=== PATIENT | male | born 1980 | race Caucasian/White ===

== ENCOUNTER 2019-05-15 06:24 | Emergency (ER) | payer BC ==
[2019-05-15] MEDS ORDERED: Sodium Chloride 0.9% 2.5 ML Syringe FLUSH PRN (06:45)
[2019-05-15] MEDS ORDERED: Sodium Chloride 0.9% 1,000 ML IV ONE (06:45)
[2019-05-15] MEDS ORDERED: Ondansetron 4 MG/2 ML SDV IVPUSH ONE (06:45)
[2019-05-15] MEDS ORDERED: Sodium Chloride 0.9% 10 ML Syringe FLUSH PRN (06:45)
[2019-05-15] MEDS ORDERED: LORazepam 2 MG/ML SDV IVPUSH ONE (07:06)
--- NOTE | 2019-05-15 07:06 | EDM.PDOC ---
ED HPI GENERAL MEDICAL PROBLEM - General Chief Complaint: General Stated Complaint: DT Time Seen by Provider: 05/15/19 07:01 Source of Information: Reports: Patient History Limitations: Reports: No Limitations - History of Present Illness INITIAL COMMENTS - FREE TEXT/NARRATIVE: History of present illness: []Patient admits to being an alcoholic and states he now wants to quit. He was around 6 PM last night and states he vomited several times throughout the night. Came to the ER for dehydration and after he arrived here, he stated he started feeling shaky. He denies any blood in his emesis or stool denies any abdominal pain. He denies ever having any seizures in the past. Quit alcohol and has gone through withdrawal in the past. Review of systems: As per history of present illness and below otherwise all systems reviewed and negative. Past medical history: As per history of present illness and as reviewed below otherwise noncontributory. Surgical history: As per history of present illness and as reviewed below otherwise noncontributory. Social history: No reported history of drug or alcohol abuse. Family history: As per history of present illness and as reviewed below otherwise noncontributory. Physical exam: General: Well developed, well nourished in NAD HEENT: Atraumatic, normocephalic, pupils reactive, negative for conjunctival pallor or scleral icterus, mucous membranes moist, throat clear, neck supple, nontender, trachea midline. Lungs: Clear to auscultation, breath sounds equal bilaterally, chest nontender. Heart: S1S2, regular, negative for clicks, rubs, or JVD. Abdomen: NABS, Soft, nondistended, nontender. Negative for masses or hepatosplenomegaly. Negative for costovertebral tenderness. Pelvis: Stable nontender. Genitourinary: Deferred. Rectal: Deferred. Extremities: Atraumatic, negative for cords or calf pain. Neurovascular unremarkable. Neuro: Awake, alert, oriented. Cranial nerves II through XII unremarkable. Cerebellum unremarkable. Motor and sensory unremarkable throughout. Exam nonfocal. No tremors noted Skin:warm and dry Diagnostics: CBC, chemistry, lactate, lipase Therapeutics: IV hydration with normal saline, banana bag, Zofran, Ativan ED Course: Improved Impression: Alcohol withdrawal Prescriptions: Librium Plan: Take meds as directed, follow up with your primary care physician, return to ER if symptoms worsen or change. Definitive disposition and diagnosis as appropriate pending reevaluation and review of above. 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 Psychiatric History: Reports: Anxiety, Depression - Infectious Disease History Infectious Disease History: Reports: C-Difficile - Past Surgical History Male Surgical History: Reports: None Social & Family History - Family History Family Medical History: Noncontributory - Tobacco Use Smoking Status *Q: Current Every Day Smoker Years of Tobacco use: 20 Packs/Tins Daily: 1.5 - Caffeine Use Caffeine Use: Reports: Coffee, Energy Drinks, Soda - Alcohol Use Days Per Week of Alcohol Use: 7 Number of Drinks Per Day: 6 Total Drinks Per Week: 42 - Recreational Drug Use Recreational Drug Use: Yes Recreational Drug Type: Reports: Marijuana/Hashish Recreational Drug Use Frequency: Socially Recreational Drug Last Use: "this morning" ED ROS GENERAL - Review of Systems Review Of Systems: See Below ED EXAM, GENERAL - Physical Exam Exam: See Below (See history of present illness) Course - Vital Signs Last Recorded V/S: Last Vital Signs Temp 97.2 F 05/15/19 06:30 Pulse 100 05/15/19 08:38 Resp 18 05/15/19 08:38 BP 128/72 05/15/19 08:38 Pulse Ox 97 05/15/19 08:38 - Orders/Labs/Meds Orders: Active Orders 24 hr Category Date Time Status Saline Lock Insert [OM.PC] Stat Oth 05/15/19 06:44 Ordered Labs: Laboratory Tests 05/15/19 05/15/19 05/15/19 Range/Units 06:45 06:50 06:50 WBC 12.03 H (4.0-11.0) K/uL RBC 5.97 H (4.50-5.90) M/uL Hgb 18.9 H (13.0-17.0) g/dL Hct 53.1 H (38.0-50.0) % MCV 88.9 (80.0-98.0) fL MCH 31.7 (27.0-32.0) pg MCHC 35.6 (31.0-37.0) g/dL RDW Std Deviation 48.7 (28.0-62.0) fl RDW Coeff of Shantel 15 (11.0-15.0) % Plt Count 195 (150-400) K/uL MPV 9.80 (7.40-12.00) fL Neut % (Auto) 65.9 (48.0-80.0) % Lymph % (Auto) 24.5 (16.0-40.0) % [place] % (Auto) 7.4 (0.0-15.0) % Eos % (Auto) 1.9 (0.0-7.0) % Baso % (Auto) 0.3 (0.0-1.5) % Neut # (Auto) 7.9 H (1.4-5.7) K/uL Lymph # (Auto) 3.0 H (0.6-2.4) K/uL [place] # (Auto) 0.9 H (0.0-0.8) K/uL Eos # (Auto) 0.2 (0.0-0.7) K/uL Baso # (Auto) 0.0 (0.0-0.1) K/uL Nucleated RBC % 0.0 /100WBC Nucleated RBCs # 0 K/uL Sodium 144 (136-148) mmol/L Potassium 3.9 (3.5-5.1) mmol/L Chloride 105 (98-107) mmol/L Carbon Dioxide 25.5 (21.0-32.0) mmol/L BUN 14 (7.0-18.0) mg/dL Creatinine 1.1 (0.8-1.3) mg/dL Est Cr Clr Drug Dosing 104.04 mL/min Estimated GFR (MDRD) > 60.0 ml/min Glucose 101 (74-106) mg/dL Calcium 9.4 (8.5-10.1) mg/dL Total Bilirubin 0.5 (0.2-1.0) mg/dL AST 25 (15-37) IU/L ALT 20 (14-63) IU/L Alkaline Phosphatase 79 (46-116) U/L Total Protein 8.1 (6.4-8.2) g/dL Albumin 4.1 (3.4-5.0) g/dL Globulin 4.0 (2.6-4.0) g/dL Albumin/Globulin Ratio 1.0 (0.9-1.6) Lipase 155 (73-393) U/L Urine Color YELLOW Urine Appearance CLEAR Urine pH 6.0 (5.0-8.0) Ur Specific [place] 1.025 (1.001-1.035) Urine Protein 30 H (NEGATIVE) mg/dL Urine Glucose (UA) NEGATIVE (NEGATIVE) mg/dL Urine Ketones NEGATIVE (NEGATIVE) mg/dL Urine Occult Blood NEGATIVE (NEGATIVE) Urine Nitrite NEGATIVE (NEGATIVE) Urine Bilirubin NEGATIVE (NEGATIVE) Urine Urobilinogen 0.2 (<2.0) EU/dL Ur Leukocyte Esterase NEGATIVE (NEGATIVE) Urine RBC 0-2 (0-2/HPF) Urine WBC 0-1 (0-5/HPF) Ur Epithelial Cells RARE (NONE-FEW) Urine Bacteria RARE (NEGATIVE) Urine Mucus MODERATE (NONE-MOD) Meds: Medications Discontinued Medications Generic Name Dose Route Start Last Admin Trade Name Freq PRN Reason Stop Dose Admin Sodium Chloride 1,000 mls @ 999 mls/hr 05/15/19 06:45 05/15/19 06:50 Normal Saline IV 05/15/19 07:45 999 mls/hr STAT ONE Administration Multivitamins/Minerals 10 ml/ 1,011.2 mls @ 999 mls/hr 05/15/19 07:17 07:33 Thiamine HCl 100 mg/ Folic IV 05/15/19 08:17 999 mls/hr Acid 1 mg/ Sodium Chloride ONETIME ONE Administration Lorazepam 1 mg 05/15/19 07:06 05/15/19 07:21 Ativan IVPUSH 05/15/19 07:07 1 mg ONETIME ONE Administration Ondansetron HCl 4 mg 05/15/19 06:45 05/15/19 06:50 Zofran IVPUSH 05/15/19 06:46 4 mg ONETIME ONE Administration Sodium Chloride 10 ml 05/15/19 06:45 Saline Flush FLUSH ASDIRECTED PRN Keep Vein Open Sodium Chloride 2.5 ml 05/15/19 06:45 Saline Flush FLUSH ASDIRECTED PRN Keep Vein Open Departure - Departure Time of Disposition: 08:35 Disposition: Home, Self-Care 01 Clinical Impression: Alcohol withdrawal Qualifiers: Complication of substance-induced condition: uncomplicated Qualified Code(s): F10.230 - Alcohol dependence with withdrawal, uncomplicated - Discharge Information *PRESCRIPTION DRUG MONITORING PROGRAM REVIEWED*: No *COPY OF PRESCRIPTION DRUG MONITORING REPORT IN PATIENT SAVANNA: No Prescriptions: chlordiazePOXIDE [Librium] 25 mg PO TID #15 cap Instructions: Alcohol Use Disorder, Alcohol Withdrawal Syndrome Referrals: PCP,None [Primary Care Provider] - Forms: ED Department Discharge Additional Instructions: The following information is given to patients seen in the emergency department who are being discharged to home. This information is to outline your options for follow-up care. We provide all patients seen in our emergency department with a follow-up referral. The need for follow-up, as well as the timing and circumstances, are variable depending upon the specifics of your emergency department visit. If you don't have a primary care physician on staff, we will provide you with a referral. We always advise you to contact your personal physician following an emergency department visit to inform them of the circumstance of the visit and for follow-up with them and/or the need for any referrals to a consulting specialist. The emergency department will also refer you to a specialist when appropriate. This referral assures that you have the opportunity for follow-up care with a specialist. All of these measure are taken in an effort to provide you with optimal care, which includes your follow-up. Under all circumstances we always encourage you to contact your private physician who remains a resource for coordinating your care. When calling for follow-up care, please make the office aware that this follow-up is from your recent emergency room visit. If for any reason you are refused follow-up, please contact the [facility] Emergency Department at and asked to speak to the emergency department charge nurse. [facility] [address] [place] [id number]
[2019-05-15 07:15] LABS: BLOOD UREA NITROGEN,BUN 14 mg/dL (7.0-18.0); CARBON DIOXIDE,CO2 25.5 mmol/L (21.0-32.0); CHLORIDE,CL 105 mmol/L (98-107); GLUCOSE RANDOM 101 mg/dL (74-106); LIPASE 155 U/L (73-393); POTASSIUM,K 3.9 mmol/L (3.5-5.1); SODIUM,NA 144 mmol/L (136-148)
[2019-05-15] MEDS ORDERED: MVI, Adult with Vitamin K 10 ML, Thiamine 100 MG, Folic Acid 1 MG in Sodium Chloride 0.... IV ONE ×4 (07:17)
[2019-05-15 08:39] VITALS: BP 128/72; PULSE 100
== END 2019-05-15 08:38 | disposition home or self-care (01) ==
LOC: MW.ED 06:24
DX: F10.230 Alcohol dependence with withdrawal, uncomplicated (principal); F41.9 Anxiety disorder, unspecified; F32.9 Major depressive disorder, single episode, unspecified; F17.210 Nicotine dependence, cigarettes, uncomplicated; Z88.8 Allergy status to other drugs, medicaments and biological substances
CPT/HCPCS: 36415; 80053; 81001; 83690; 85025; 96361; 96365; 96375; 99284; J2060; J2405; J3411; J7040; 99283

== ENCOUNTER 2019-07-19 01:59 | Observation (INO) | payer BC ==
[2019-07-19] MEDS ORDERED: Ondansetron 4 MG/2 ML SDV IVPUSH ONE (02:16)
[2019-07-19] MEDS ORDERED: Sodium Chloride 0.9% 2.5 ML Syringe FLUSH PRN (02:16)
[2019-07-19] MEDS ORDERED: Sodium Chloride 0.9% 10 ML Syringe FLUSH PRN (02:16)
[2019-07-19] MEDS ORDERED: Sodium Chloride 0.9% 1,000 ML IV ONE (02:16)
[2019-07-19] MEDS ORDERED: MVI, Adult with Vitamin K 10 ML, Thiamine 100 MG, Folic Acid 1 MG in Sodium Chloride 0.... IV ONE ×4 (02:17)
--- NOTE | 2019-07-19 02:23 | EDM.PDOC ---
ED HPI GENERAL MEDICAL PROBLEM - General Chief Complaint: Behavioral/Psych Stated Complaint: SUICIDE ATTEMPT Time Seen by Provider: 07/19/19 02:04 - History of Present Illness INITIAL COMMENTS - FREE TEXT/NARRATIVE: HISTORY AND PHYSICAL: History of present illness: The patient is a 38-year-old male with a history of alcohol use and abuse as well as significant depression for which he has done detox and stopped drinking in the past and has also had an inpatient admission for psychiatric care 2 years ago and no presents via EMS after saying he is incredibly depressed and this has accelerated to a suicide attempt this evening. According to the patient about 2 years ago he was admitted to [facility] for suicidal ideation and wanting to stab himself in the chest. He says he was placed on medication at that time and when he lost his health insurance and was unable to refill those meds so he has not taken any medication for depression in more than a year. He also has a known history of alcohol use and abuse and says that he has done detox in the past on his own and he stopped drinking back in May but restarted about 3 or 4 weeks ago. The patient was seen here in our emergency department on May 15 for alcohol abuse as well as nausea vomiting and shakiness and was given IV fluids Zofran Ativan and sent home with a prescription for Librium 25 mg, 15 tablets. He says that he use them for the prescription and was able to come off the alcohol but began re-drinking about 3 weeks ago. He says that he drinks about 3 of the many bottles of liquor, the ones that are sold on the airplane, every evening but he has steadily increased the amount to help him go to sleep and to fight the depression. He says that about an hour and a half ago he drank 8 of those many bottles and over the last 24 hours he has had a total of 16 of those many bottles. He is also taken 400 mg of Motrin but no other [id number] meds and has no other prescription meds. He only had 4 tablets of the Librium left over, 25 mg, which she took about an hour and a half ago. He had no vomiting or nausea and has no abdominal complaints. He has no chest pain or shortness of breath and no other systemic issues or complaints. He tells me specifically that he did this with intent to hurt himself because he does not want to go on with these feelings and with his life. He says that if he had more tablets in the bottle he would've taken them. He has not had any recent outpatient counseling and he has not sought any outpatient resources. The patient called EMS for help. He denies any other trauma to his body and he does live alone with some cats. He says his only local friend or family member is an ex-girlfriend who he says his drugs and is not someone of support to him. Review of systems: As per history of present illness and below otherwise all systems reviewed and negative. Past medical history: As per history of present illness and as reviewed below otherwise noncontributory. Surgical history: As per history of present illness and as reviewed below otherwise noncontributory. Social history: No reported history of drug or alcohol abuse. Family history: As per history of present illness and as reviewed below otherwise noncontributory. Physical exam: General: Well-developed well-nourished man who is nontoxic and vital signs are noted by me. He has a depressed affect but answers questions with clear voice and no slurring of his speech. HEENT: Atraumatic, normocephalic, pupils reactive, negative for conjunctival pallor or scleral icterus, mucous membranes moist, throat clear, neck supple, nontender, trachea midline. Lungs: Clear to auscultation, breath sounds equal bilaterally, chest nontender. Heart: S1S2, regular, negative for clicks, rubs, or JVD. Abdomen: Soft, nondistended, minimal diffuse abdominal tenderness without rebound or guarding and bowel sounds are normoactive Negative for masses or hepatosplenomegaly. Negative for costovertebral tenderness. Pelvis: Stable nontender. Genitourinary: Deferred. Rectal: Deferred. Extremities: Atraumatic, negative for cords or calf pain. Neurovascular unremarkable. Full range of motion without defects or deficits Neuro: Awake, alert, oriented. Cranial nerves II through XII unremarkable. Cerebellum unremarkable. Motor and sensory unremarkable throughout. Exam nonfocal. Diagnostics: EKG CBC CMP aspirin and Tylenol levels alcohol level TSH magnesium UA UDS Therapeutics: IV banana bag Zofran magnesium oxide Poison control was contacted by nursing and says that the peak of Librium is 2 hours postingestion and the half-life is 24 hours but if we do not see any signs or symptoms of profound sedation or respiratory depression within the first 2 hours he can be medically cleared. As the patient says he took the pills about an hour and a half ago we are ready approaching that timeframe. We will Continue to monitor the labs and follow-up his labs and work on placement. 0235: Case was discussed with the psychiatrist at [facility] in [place], Dr. Lai; he accepts the patient for transfer. I will complete an emergency usp order and continue to monitor the patient's labs and try to arrange transportation Impression: Suicide attempt, major depression with history of same, history of alcohol use and abuse Definitive disposition and diagnosis as appropriate pending reevaluation and review of above. 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 - Related Data Allergies Allergy/AdvReac Type Severity Reaction Status Date / Time trazodone Allergy Itching Verified 07/19/19 02:01 Home Meds: Home Meds chlordiazePOXIDE [Librium] 25 mg PO TID #15 cap 05/15/19 [Rx] Past Medical History HEENT History: Reports: None Cardiovascular History: Reports: None Respiratory History: Reports: None Gastrointestinal History: Reports: None Genitourinary History: Reports: Other (See Below) Other Genitourinary History: donated 1 kidney, pt unsure if right or left Musculoskeletal History: Reports: None Neurological History: Reports: None Psychiatric History: Reports: Anxiety, Depression, Suicide Attempt, Suicidal Ideation Endocrine/Metabolic History: Reports: None Insulin Pump Model and Event Executive: None Hematologic History: Reports: None Immunologic History: Reports: None Oncologic (Cancer) History: Reports: None Dermatologic History: Reports: None - Infectious Disease History Infectious Disease History: Reports: C-Difficile - Past Surgical History Head Surgeries/Procedures: Reports: None Male Surgical History: Reports: Nephrectomy Social & Family History - Family History Family Medical History: Noncontributory - Caffeine Use Caffeine Use: Reports: Coffee, Energy Drinks, Soda - Recreational Drug Use Recreational Drug Use: No ED ROS GENERAL - Review of Systems Review Of Systems: ROS reveals no pertinent complaints other than HPI. ED EXAM, GENERAL - Physical Exam Exam: See Below (see Dictation) Course - Vital Signs Last Recorded V/S: Last Vital Signs Temp 36.5 C 07/19/19 02:00 Pulse 86 07/19/19 02:00 Resp 18 07/19/19 02:00 BP 154/108 H 07/19/19 02:00 Pulse Ox 98 07/19/19 02:00 - Orders/Labs/Meds Orders: Active Orders 24 hr Category Date Time Status EKG Documentation Completion [RC] STAT Care 07/19/19 02:15 Active DRUG SCREEN, URINE [URCHEM] Stat Lab 07/19/19 02:16 Ordered UA RFX TARIK AND CULT IF INDIC [URIN] Stat Lab 07/19/19 02:16 Ordered MVI, Adult with Vitamin K [Infuvite Adult] 10 ml Med 07/19/19 02:17 Active Thiamine [Vitamin B-1] 100 mg Folic Acid 1 mg Sodium Chloride 0.9% [Normal Saline] 1,000 ml IV ONETIME Magnesium Oxide Med 07/19/19 03:09 Once 400 mg PO ONETIME ONE Sodium Chloride 0.9% [Saline Flush] Med 07/19/19 02:16 Active 10 ml FLUSH ASDIRECTED PRN Sodium Chloride 0.9% [Saline Flush] Med 07/19/19 02:16 Active 2.5 ml FLUSH ASDIRECTED PRN Saline Lock Insert [OM.PC] Stat Oth 07/19/19 02:16 Ordered Medication Orders Multivitamins/Minerals 10 ml/Thiamine HCl 100 mg/ Folic Acid 1 mg/ Sodium Chloride 1,011.2 mls @ 999 mls/hr IV ONETIME ONE Stop: 07/19/19 03:17 Last Admin: 07/19/19 02:44 Dose: 999 mls/hr Sodium Chloride (Saline Flush) 10 ml FLUSH ASDIRECTED PRN PRN Reason: Keep Vein Open Last Admin: 07/19/19 02:52 Dose: 10 ml Sodium Chloride (Saline Flush) 2.5 ml FLUSH ASDIRECTED PRN PRN Reason: Keep Vein Open Last Admin: 07/19/19 02:52 Dose: 2.5 ml Labs: Laboratory Tests 07/19/19 07/19/19 Range/Units 02:22 02:22 WBC 7.06 (4.0-11.0) K/uL RBC 5.42 (4.50-5.90) M/uL Hgb 17.4 H (13.0-17.0) g/dL Hct 48.4 (38.0-50.0) % MCV 89.3 (80.0-98.0) fL MCH 32.1 H (27.0-32.0) pg MCHC 36.0 (31.0-37.0) g/dL RDW Std Deviation 46.2 (28.0-62.0) fl RDW Coeff of Shantel 14 (11.0-15.0) % Plt Count 182 (150-400) K/uL MPV 10.10 (7.40-12.00) fL Neut % (Auto) 44.6 L (48.0-80.0) % Lymph % (Auto) 46.9 H (16.0-40.0) % [place] % (Auto) 6.5 (0.0-15.0) % Eos % (Auto) 1.6 (0.0-7.0) % Baso % (Auto) 0.4 (0.0-1.5) % Neut # (Auto) 3.2 (1.4-5.7) K/uL Lymph # (Auto) 3.3 H (0.6-2.4) K/uL [place] # (Auto) 0.5 (0.0-0.8) K/uL Eos # (Auto) 0.1 (0.0-0.7) K/uL Baso # (Auto) 0.0 (0.0-0.1) K/uL Nucleated RBC % 0.0 /100WBC Nucleated RBCs # 0 K/uL Sodium 143 (136-148) mmol/L Potassium 3.8 (3.5-5.1) mmol/L Chloride 105 (98-107) mmol/L Carbon Dioxide 27.1 (21.0-32.0) mmol/L BUN 12 (7.0-18.0) mg/dL Creatinine 0.9 (0.8-1.3) mg/dL Est Cr Clr Drug Dosing 131.94 mL/min Estimated GFR (MDRD) > 60.0 ml/min Glucose 133 H (74-106) mg/dL Calcium 8.0 L (8.5-10.1) mg/dL Magnesium 1.7 L (1.8-2.4) mg/dL Total Bilirubin 0.3 (0.2-1.0) mg/dL AST 33 (15-37) IU/L ALT 17 (14-63) IU/L Alkaline Phosphatase 65 (46-116) U/L Total Protein 7.1 (6.4-8.2) g/dL Albumin 3.4 (3.4-5.0) g/dL Globulin 3.7 (2.6-4.0) g/dL Albumin/Globulin Ratio 0.9 (0.9-1.6) TSH 3rd Generation 1.08 (0.36-3.74) uIU/mL Salicylates 6.1 (0-20) mg/dL Acetaminophen <2.0 ug/mL Ethyl Alcohol 243 mg/dL Meds: Medications Generic Name Dose Route Start Last Admin Trade Name Freq PRN Reason Stop Dose Admin Multivitamins/Minerals 10 ml/ 1,011.2 mls @ 999 mls/hr 07/19/19 02:17 02:44 Thiamine HCl 100 mg/ Folic IV 07/19/19 03:17 999 mls/hr Acid 1 mg/ Sodium Chloride ONETIME ONE Administration Sodium Chloride 10 ml 07/19/19 02:16 07/19/19 02:52 Saline Flush FLUSH 10 ml ASDIRECTED PRN Administration Keep Vein Open Sodium Chloride 2.5 ml 07/19/19 02:16 07/19/19 02:52 Saline Flush FLUSH 2.5 ml ASDIRECTED PRN Administration Keep Vein Open Discontinued Medications Generic Name Dose Route Start Last Admin Trade Name Freq PRN Reason Stop Dose Admin Sodium Chloride 1,000 mls @ 999 mls/hr 07/19/19 02:16 07/19/19 02:31 Normal Saline IV 07/19/19 03:16 Not Given STAT ONE Ondansetron HCl 4 mg 07/19/19 02:16 07/19/19 02:26 Zofran IVPUSH 07/19/19 02:17 4 mg ONETIME ONE Administration Departure - Departure Time of Disposition: 03:10 Disposition: DC/Tfer to Psych Hosp/Unit [facility] Condition: Good Clinical Impression: Depressive disorder, Intentional overdose of drug in tablet form - Discharge Information Referrals: PCP,None [Primary Care Provider] - Forms: ED Department Discharge - My Orders Last 24 Hours: My Active Orders 07/19/19 02:15 EKG Documentation Completion [RC] STAT 07/19/19 02:16 DRUG SCREEN, URINE [URCHEM] Stat UA RFX TARIK AND CULT IF INDIC [URIN] Stat Sodium Chloride 0.9% [Saline Flush] 10 ml FLUSH ASDIRECTED PRN Sodium Chloride 0.9% [Saline Flush] 2.5 ml FLUSH ASDIRECTED PRN Saline Lock Insert [OM.PC] Stat 07/19/19 02:17 MVI, Adult with Vitamin K [Infuvite Adult] 10 ml Thiamine [Vitamin B-1] 100 mg Folic Acid 1 mg Sodium Chloride 0.9% [Normal Saline] 1,000 ml IV ONETIME 07/19/19 03:09 Magnesium Oxide 400 mg PO ONETIME ONE - Assessment/Plan Last 24 Hours: My Active Orders 07/19/19 02:15 EKG Documentation Completion [RC] STAT 07/19/19 02:16 DRUG SCREEN, URINE [URCHEM] Stat UA RFX TARIK AND CULT IF INDIC [URIN] Stat Sodium Chloride 0.9% [Saline Flush] 10 ml FLUSH ASDIRECTED PRN Sodium Chloride 0.9% [Saline Flush] 2.5 ml FLUSH ASDIRECTED PRN Saline Lock Insert [OM.PC] Stat 07/19/19 02:17 MVI, Adult with Vitamin K [Infuvite Adult] 10 ml Thiamine [Vitamin B-1] 100 mg Folic Acid 1 mg Sodium Chloride 0.9% [Normal Saline] 1,000 ml IV ONETIME 07/19/19 03:09 Magnesium Oxide 400 mg PO ONETIME ONE
[2019-07-19 03:00] LABS: ACETAMINOPHEN <2.0 ug/mL; BLOOD UREA NITROGEN,BUN 12 mg/dL (7.0-18.0); CARBON DIOXIDE,CO2 27.1 mmol/L (21.0-32.0); CHLORIDE,CL 105 mmol/L (98-107); GLUCOSE RANDOM 133 mg/dL (74-106); POTASSIUM,K 3.8 mmol/L (3.5-5.1); SODIUM,NA 143 mmol/L (136-148)
[2019-07-19] MEDS ORDERED: Magnesium Oxide 400 MG Tab PO ONE (03:09)
[2019-07-19] MEDS ORDERED: Nicotine 14 MG/24 Hr Patch TRDERM ONE (03:37)
[2019-07-19] MEDS ORDERED: LORazepam 2 MG/ML SDV IVPUSH ONE (04:23)
[2019-07-19 08:01] VITALS: BP 132/87; PULSE 91
[2019-07-19] MEDS ORDERED: LORazepam 2 MG/ML SDV IVPUSH PRN (08:42)
--- NOTE | 2019-07-19 08:43 | PCM.HP.2 ---
H&P History of Present Illness - General Date of Service: 07/19/19 Admit Problem/Dx: Admission Diagnosis/Problem Admission Diagnosis/Problem Suicide attempt Source of Information: Patient History Limitations: Reports: No Limitations - History of Present Illness Initial Comments - Free Text/Narative: This 38 year old male with pmh of depression, suicidal ideation, alcohol abuse and tobacco abuse presented to the ED last evening after ingestion 16 shots of alcohol and taking approximately 4 tabs of 25 mg Librium. He reports his depression has progressively worsened over the last week or so due to accelerated alcohol use. He has been sober multiple times and was recently up until 3 weeks ago. He reports he has access to " multitude of knives at home and tools" as he is a [employer] by trade. He reports he currently has no plans of suicide, but starts talking about how physician assisted suicide needs to be legal and he will use this when it is available and legal. He reports mild nausea now, no chest pain. Mild frontal headache. 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 He has not been on any psychiatric medications for approximately 1 year. He was admitted in a psychiatric facility 2 years ago and given medications, but his insurance ran out 1 year ago and not been able to fill his prescriptions. He reports he has been on a multitude of medications including Effexor, Mirtazapine, Zoloft, and "many more" which didn't help. He was accepted for transfer by psychiatrist in [place], Dr Lai at 0235, Dr Rouse out ED MD spoke with him this morning. Due to weather, EMS was unable to travel. He was admitted observation awaiting for roads to clear. - Related Data Allergies/Adverse Reactions: Allergies Allergy/AdvReac Type Severity Reaction Status Date / Time trazodone Allergy Itching Verified 07/19/19 07:59 Home Medications: Home Meds chlordiazePOXIDE [Librium] 25 mg PO TID #15 cap 05/15/19 [Rx] Past Medical History HEENT History: Reports: None Cardiovascular History: Reports: None. Denies: CAD, High Cholesterol, Hypertension, [place] Respiratory History: Reports: COPD, Other (See Below) Other Respiratory History: daily smoker Gastrointestinal History: Reports: None Genitourinary History: Reports: Other (See Below) Other Genitourinary History: donated 1 kidney to his sister- surgery done in [facility] Musculoskeletal History: Reports: None Neurological History: Reports: None. Denies: CVA, TIA Psychiatric History: Reports: Addiction, Anxiety, Depression, Psych Hospitalization(s), Suicide Attempt, Suicidal Ideation, Other (See Below) Other Psychiatric History: hosp 2 yrs ago in inpatient psych. stopped taking his medications for a years- feels like " it doesn't work". sober for 4 yrs- started drinking since March. feels depressed but unable to point what triggers it Endocrine/Metabolic History: Reports: None Insulin Pump Model and Nuclear Worker Technician: None Hematologic History: Reports: None Immunologic History: Reports: None Oncologic (Cancer) History: Reports: None Dermatologic History: Reports: None - Infectious Disease History Infectious Disease History: Reports: C-Difficile - Past Surgical History Head Surgeries/Procedures: Reports: None Respiratory Surgical History: Reports: None Male Surgical History: Reports: Nephrectomy, Other (See Below) Other Male Surgeries/Procedures: 1 kidney donated to sister Social & Family History - Family History Family Medical History: Noncontributory - Tobacco Use Smoking Status *Q: Current Every Day Smoker Years of Tobacco use: 23 Packs/Tins Daily: 2 - Caffeine Use Caffeine Use: Reports: Coffee, Energy Drinks, Soda, Tea - Alcohol Use Alcohol Use History: Yes Days Per Week of Alcohol Use: 7 Number of Drinks Per Day: 5 Total Drinks Per Week: 35 Alcohol Use Frequency: Daily - Recreational Drug Use Recreational Drug Use: No - Living Situation & Occupation Occupation: Employed ([employer]) H&P Review of Systems - Review of Systems: Review Of Systems: See Below General: Reports: Malaise. Denies: Fever, Chills HEENT: Reports: Headaches. Denies: Sinus Congestion, Sore Throat, Visual Changes Pulmonary: Reports: No Symptoms. Denies: Shortness of Breath, Wheezing, Cough, Sputum Cardiovascular: Reports: No Symptoms. Denies: Chest Pain, Palpitations, Edema Gastrointestinal: Reports: Decreased Appetite, Nausea. Denies: Abdominal Pain, Vomiting Genitourinary: Reports: No Symptoms. Denies: Dysuria, Frequency, Burning Musculoskeletal: Reports: No Symptoms Skin: Reports: No Symptoms Psychiatric: Reports: Depression, Anxiety, Suicidal Ideation. Denies: Agitation , Hallucinations, Hallucinations (Auditory), Hallucinations (Visual) Neurological: Reports: Headache. Denies: Tremors Hematologic/Lymphatic: Reports: No Symptoms Immunologic: Reports: No Symptoms Exam - Exam Exam: See Below - Vital Signs Vital Signs: Last Vital Signs Temp 98.7 F 07/19/19 08:00 Pulse 91 07/19/19 08:00 Resp 18 07/19/19 08:00 BP 132/87 07/19/19 08:00 Pulse Ox 97 07/19/19 08:00 Weight: 74.4 kg - Exam General: Alert, Oriented, Cooperative HEENT: Conjunctiva Clear, Hearing Intact Neck: Supple, Trachea Midline Lungs: Clear to Auscultation, Normal Respiratory Effort Cardiovascular: Regular Rate, Regular Rhythm GI/Abdominal Exam: Normal Bowel Sounds, Soft, Non-Tender Extremities: Normal Inspection, Normal Range of Motion, Non-Tender Neuro Extensive - Mental Status: Alert, Oriented x3, Normal Mood/Affect Psychiatric: Anxious, Suicidal Ideation, Withdrawal Symptoms (mild headache and nausea). No: Hallucinations - Patient Data Lab Results Last 24 hrs: Laboratory Results - last 24 hr 07/19/19 07/19/19 07/19/19 Range/Units 02:22 02:22 04:00 WBC 7.06 (4.0-11.0) K/uL RBC 5.42 (4.50-5.90) M/uL Hgb 17.4 H (13.0-17.0) g/dL Hct 48.4 (38.0-50.0) % MCV 89.3 (80.0-98.0) fL MCH 32.1 H (27.0-32.0) pg MCHC 36.0 (31.0-37.0) g/dL RDW Std Deviation 46.2 (28.0-62.0) fl RDW Coeff of Shantel 14 (11.0-15.0) % Plt Count 182 (150-400) K/uL MPV 10.10 (7.40-12.00) fL Neut % (Auto) 44.6 L (48.0-80.0) % Lymph % (Auto) 46.9 H (16.0-40.0) % Nobles % (Auto) 6.5 (0.0-15.0) % Eos % (Auto) 1.6 (0.0-7.0) % Baso % (Auto) 0.4 (0.0-1.5) % Neut # (Auto) 3.2 (1.4-5.7) K/uL Lymph # (Auto) 3.3 H (0.6-2.4) K/uL Nobles # (Auto) 0.5 (0.0-0.8) K/uL Eos # (Auto) 0.1 (0.0-0.7) K/uL Baso # (Auto) 0.0 (0.0-0.1) K/uL Nucleated RBC % 0.0 /100WBC Nucleated RBCs # 0 K/uL Sodium 143 (136-148) mmol/L Potassium 3.8 (3.5-5.1) mmol/L Chloride 105 (98-107) mmol/L Carbon Dioxide 27.1 (21.0-32.0) mmol/L BUN 12 (7.0-18.0) mg/dL Creatinine 0.9 (0.8-1.3) mg/dL Est Cr Clr Drug Dosing 131.94 mL/min Estimated GFR (MDRD) > 60.0 ml/min Glucose 133 H (74-106) mg/dL Calcium 8.0 L (8.5-10.1) mg/dL Magnesium 1.7 L (1.8-2.4) mg/dL Total Bilirubin 0.3 (0.2-1.0) mg/dL AST 33 (15-37) IU/L ALT 17 (14-63) IU/L Alkaline Phosphatase 65 (46-116) U/L Total Protein 7.1 (6.4-8.2) g/dL Albumin 3.4 (3.4-5.0) g/dL Globulin 3.7 (2.6-4.0) g/dL Albumin/Globulin Ratio 0.9 (0.9-1.6) TSH 3rd Generation 1.08 (0.36-3.74) uIU/mL Urine Color YELLOW Urine Appearance CLEAR Urine pH 6.5 (5.0-8.0) Ur Specific Carpenter 1.025 (1.001-1.035) Urine Protein TRACE H (NEGATIVE) mg/dL Urine Glucose (UA) NEGATIVE (NEGATIVE) mg/dL Urine Ketones NEGATIVE (NEGATIVE) mg/dL Urine Occult Blood NEGATIVE (NEGATIVE) Urine Nitrite NEGATIVE (NEGATIVE) Urine Bilirubin NEGATIVE (NEGATIVE) Urine Urobilinogen 1.0 (<2.0) EU/dL Ur Leukocyte Esterase NEGATIVE (NEGATIVE) Urine RBC 0-1 (0-2/HPF) Urine WBC 0-1 (0-5/HPF) Ur Epithelial Cells RARE (NONE-FEW) Urine Bacteria RARE (NEGATIVE) Salicylates 6.1 (0-20) mg/dL Urine Opiates Screen (NEGATIVE) Ur Oxycodone Screen (NEGATIVE) Urine Methadone Screen (NEGATIVE) Acetaminophen <2.0 ug/mL Ur Barbiturates Screen (NEGATIVE) Ur Phencyclidine Scrn (NEGATIVE) Ur Amphetamine Screen (NEGATIVE) U Methamphetamines Scrn (NEGATIVE) U Benzodiazepines Scrn (NEGATIVE) U Cocaine Metab Screen (NEGATIVE) U Marijuana (THC) Screen (NEGATIVE) Ethyl Alcohol 243 mg/dL 07/19/19 Range/Units 04:00 WBC (4.0-11.0) K/uL RBC (4.50-5.90) M/uL Hgb (13.0-17.0) g/dL Hct (38.0-50.0) % MCV (80.0-98.0) fL MCH (27.0-32.0) pg MCHC (31.0-37.0) g/dL RDW Std Deviation (28.0-62.0) fl RDW Coeff of Shantel (11.0-15.0) % Plt Count (150-400) K/uL MPV (7.40-12.00) fL Neut % (Auto) (48.0-80.0) % Lymph % (Auto) (16.0-40.0) % Nobles % (Auto) (0.0-15.0) % Eos % (Auto) (0.0-7.0) % Baso % (Auto) (0.0-1.5) % Neut # (Auto) (1.4-5.7) K/uL Lymph # (Auto) (0.6-2.4) K/uL Nobles # (Auto) (0.0-0.8) K/uL Eos # (Auto) (0.0-0.7) K/uL Baso # (Auto) (0.0-0.1) K/uL Nucleated RBC % /100WBC Nucleated RBCs # K/uL Sodium (136-148) mmol/L Potassium (3.5-5.1) mmol/L Chloride (98-107) mmol/L Carbon Dioxide (21.0-32.0) mmol/L BUN (7.0-18.0) mg/dL Creatinine (0.8-1.3) mg/dL Est Cr Clr Drug Dosing mL/min Estimated GFR (MDRD) ml/min Glucose (74-106) mg/dL Calcium (8.5-10.1) mg/dL Magnesium (1.8-2.4) mg/dL Total Bilirubin (0.2-1.0) mg/dL AST (15-37) IU/L ALT (14-63) IU/L Alkaline Phosphatase (46-116) U/L Total Protein (6.4-8.2) g/dL Albumin (3.4-5.0) g/dL Globulin (2.6-4.0) g/dL Albumin/Globulin Ratio (0.9-1.6) TSH 3rd Generation (0.36-3.74) uIU/mL Urine Color Urine Appearance Urine pH (5.0-8.0) Ur Specific Carpenter (1.001-1.035) Urine Protein (NEGATIVE) mg/dL Urine Glucose (UA) (NEGATIVE) mg/dL Urine Ketones (NEGATIVE) mg/dL Urine Occult Blood (NEGATIVE) Urine Nitrite (NEGATIVE) Urine Bilirubin (NEGATIVE) Urine Urobilinogen (<2.0) EU/dL Ur Leukocyte Esterase (NEGATIVE) Urine RBC (0-2/HPF) Urine WBC (0-5/HPF) Ur Epithelial Cells (NONE-FEW) Urine Bacteria (NEGATIVE) Salicylates (0-20) mg/dL Urine Opiates Screen NEGATIVE (NEGATIVE) Ur Oxycodone Screen NEGATIVE (NEGATIVE) Urine Methadone Screen NEGATIVE (NEGATIVE) Acetaminophen ug/mL Ur Barbiturates Screen NEGATIVE (NEGATIVE) Ur Phencyclidine Scrn NEGATIVE (NEGATIVE) Ur Amphetamine Screen NEGATIVE (NEGATIVE) U Methamphetamines Scrn NEGATIVE (NEGATIVE) U Benzodiazepines Scrn NEGATIVE (NEGATIVE) U Cocaine Metab Screen NEGATIVE (NEGATIVE) U Marijuana (THC) Screen NEGATIVE (NEGATIVE) Ethyl Alcohol mg/dL Result Diagrams: 07/19/19 02:22 07/19/19 02:22 - Problem List (1) Depressive disorder SNOMED Code(s): 37571317 ICD Code: F32.9 - MAJOR DEPRESSIVE DISORDER, SINGLE EPISODE, UNSPECIFIED Status: Acute Current Visit: Yes (2) Intentional overdose of drug in tablet form SNOMED Code(s): 814259280 ICD Code: T50.902A - POISONING BY UNSP DRUG/MEDS/BIOL SUBST, SELF-HARM, INIT Status: Acute Current Visit: Yes (3) Alcohol abuse SNOMED Code(s): 93125977 ICD Code: F10.10 - ALCOHOL ABUSE, UNCOMPLICATED Status: Acute Current Visit: No Problem List Initiated/Reviewed/Updated: Yes Orders Last 24hrs: Active Orders 24 hr Category Date Time Status Patient Status [ADT] Stat ADT 07/19/19 04:16 Active Regular Diet [DIET] Diet 07/19/19 Breakfast Active LORazepam [Ativan] Med 07/19/19 08:42 Ordered See Protocol IVPUSH Q4H PRN Sodium Chloride 0.9% [Saline Flush] Med 07/19/19 02:16 Active 10 ml FLUSH ASDIRECTED PRN Sodium Chloride 0.9% [Saline Flush] Med 07/19/19 02:16 Active 2.5 ml FLUSH ASDIRECTED PRN One To One Therapy [BH] Routine Oth 07/19/19 05:14 Ordered Saline Lock Insert [OM.PC] Stat Oth 07/19/19 02:16 Ordered Suicide Precautions BH [BH] Routine Oth 07/19/19 05:14 Ordered Medication Orders Sodium Chloride (Saline Flush) 10 ml FLUSH ASDIRECTED PRN PRN Reason: Keep Vein Open Last Admin: 07/19/19 02:52 Dose: 10 ml Sodium Chloride (Saline Flush) 2.5 ml FLUSH ASDIRECTED PRN PRN Reason: Keep Vein Open Last Admin: 07/19/19 02:52 Dose: 2.5 ml Assessment/Plan Comment:: Discharge Plan: EMS called this morning, they are able to travel and are able to take Freddy to [place]. Will give Darren Ativan prior to leaving along with Protonix. He will be transferred to [place] psychiatric facility due to suicide attempt and suicidal ideation. - Mortality Measure Prognosis:: Good
[2019-07-19] MEDS ORDERED: Pantoprazole 40 MG in Sodium Chloride 0.9% 10 ML IV ONE (08:54)
== END 2019-07-19 10:30 ==
LOC: MW.ED 01:59 → MW.ICU 04:16
PROVIDERS: ADMIT Internal Medicine; ATTEND Internal Medicine
DX: T42.4X2A Poisoning by benzodiazepines, intentional self-harm, initial encounter (principal); R11.0 Nausea; R51 Headache; J44.9 Chronic obstructive pulmonary disease, unspecified; F32.9 Major depressive disorder, single episode, unspecified; F17.200 Nicotine dependence, unspecified, uncomplicated; F10.10 Alcohol abuse, uncomplicated; Z79.899 Other long term (current) drug therapy
CPT/HCPCS: 36415; 80053; 80305-QW; 81001; 83735; 84443; 85025; 93005; 96365; 96375; 96376; 99285; 99285-25; A9270-GY; C9113; G0378; G0480; J2060; J2405; J3411; J7040; J7050

== ENCOUNTER 2019-07-27 15:31 | Emergency (ER) | payer BC ==
--- NOTE | 2019-07-27 16:00 | EDM.PDOC ---
ED HPI GENERAL MEDICAL PROBLEM - General Chief Complaint: Behavioral/Psych Stated Complaint: PSYCH EVAL Time Seen by Provider: 07/27/19 15:55 - History of Present Illness INITIAL COMMENTS - FREE TEXT/NARRATIVE: HISTORY AND PHYSICAL: History of present illness: Patient 38-year-old white male with history of depression and alcohol abuse who presents in custody of law enforcement after having called them regarding his suicidal ideation plan to kill himself by knife. He was recently hospitalized for psychiatric purposes several weeks prior to [facility] put on medications he states he's been compliant but has been also abusing alcohol on top of it. He is cooperative here agreeable to transfer but does acknowledge he is still suicidal. Review of systems: As per history of present illness and below otherwise all systems reviewed and negative. Past medical history: As per history of present illness and as reviewed below otherwise noncontributory. Surgical history: As per history of present illness and as reviewed below otherwise noncontributory. Social history: No reported history of drug or alcohol abuse. Family history: As per history of present illness and as reviewed below otherwise noncontributory. Physical exam: HEENT: Atraumatic, normocephalic, pupils reactive, negative for conjunctival pallor or scleral icterus, mucous membranes moist, throat clear, neck supple, nontender, trachea midline. Lungs: Clear to auscultation, breath sounds equal bilaterally, chest nontender. Heart: S1S2, regular, negative for clicks, rubs, or JVD. Abdomen: Soft, nondistended, nontender. Negative for masses or hepatosplenomegaly. Negative for costovertebral tenderness. Pelvis: Stable nontender. Genitourinary: Deferred. Rectal: Deferred. Extremities: Atraumatic, negative for cords or calf pain. Neurovascular unremarkable. Neuro: Awake, alert, oriented. Cranial nerves II through XII unremarkable. Cerebellum unremarkable. Motor and sensory unremarkable throughout. Exam nonfocal. Diagnostics: psychiatric panel Therapeutics: None Impression: #1 depressive episode with suicidal ideation Definitive disposition and diagnosis as appropriate pending reevaluation and review of above. bodyaches Pain Score (Numeric/FACES): 7 - Related Data Allergies Allergy/AdvReac Type Severity Reaction Status Date / Time trazodone Allergy Itching Verified 07/27/19 15:39 Home Meds: Home Meds Citalopram Hydrobromide [Celexa] 10 mg PO DAILY 07/27/19 [History] QUEtiapine [SEROquel] 25 mg PO BEDTIME 07/27/19 [History] Past Medical History HEENT History: Reports: None Cardiovascular History: Reports: None Respiratory History: Reports: COPD, Other (See Below) Other Respiratory History: daily smoker Gastrointestinal History: Reports: None Genitourinary History: Reports: Other (See Below) Other Genitourinary History: donated 1 kidney to his sister- surgery done in [facility] Musculoskeletal History: Reports: None Neurological History: Reports: None Psychiatric History: Reports: Addiction, Anxiety, Depression, Psych Hospitalization(s), Suicide Attempt, Suicidal Ideation, Other (See Below) Other Psychiatric History: hosp 2 yrs ago in inpatient psych. stopped taking his medications for a years- feels like " it doesn't work". sober for 4 yrs- started drinking since March. feels depressed but unable to point what triggers it Endocrine/Metabolic History: Reports: None Insulin Pump Model and Corporate Legal Intern: None Hematologic History: Reports: None Immunologic History: Reports: None Oncologic (Cancer) History: Reports: None Dermatologic History: Reports: None - Infectious Disease History Infectious Disease History: Reports: C-Difficile - Past Surgical History Head Surgeries/Procedures: Reports: None Respiratory Surgical History: Reports: None Male Surgical History: Reports: Nephrectomy, Other (See Below) Other Male Surgeries/Procedures: 1 kidney donated to sister Social & Family History - Family History Family Medical History: Noncontributory - Tobacco Use Smoking Status *Q: Current Every Day Smoker Years of Tobacco use: 22 Packs/Tins Daily: 2 - Caffeine Use Caffeine Use: Reports: Coffee, Energy Drinks, Soda, Tea - Recreational Drug Use Recreational Drug Use: No - Living Situation & Occupation Occupation: Employed ([employer]) ED ROS GENERAL - Review of Systems Review Of Systems: ROS reveals no pertinent complaints other than HPI. ED EXAM, GENERAL - Physical Exam Exam: See Below (See dictation) Course - Vital Signs Last Recorded V/S: Last Vital Signs Temp 37.0 C 07/27/19 15:35 Pulse 115 H 07/27/19 15:35 Resp 18 07/27/19 15:35 BP 155/108 H 07/27/19 15:35 Pulse Ox 95 07/27/19 15:35 - Orders/Labs/Meds Orders: Active Orders 24 hr Category Date Time Status EKG Documentation Completion [RC] STAT Care 07/27/19 15:46 Active Labs: Laboratory Tests 07/27/19 07/27/19 07/27/19 Range/Units 15:57 15:57 16:08 WBC 8.35 (4.0-11.0) K/uL RBC 5.32 (4.50-5.90) M/uL Hgb 17.1 H (13.0-17.0) g/dL Hct 48.1 (38.0-50.0) % MCV 90.4 (80.0-98.0) fL MCH 32.1 H (27.0-32.0) pg MCHC 35.6 (31.0-37.0) g/dL RDW Std Deviation 48.8 (28.0-62.0) fl RDW Coeff of Shantel 15 (11.0-15.0) % Plt Count 188 (150-400) K/uL MPV 9.80 (7.40-12.00) fL Neut % (Auto) 51.4 (48.0-80.0) % Lymph % (Auto) 40.1 H (16.0-40.0) % Tate % (Auto) 6.3 (0.0-15.0) % Eos % (Auto) 2.0 (0.0-7.0) % Baso % (Auto) 0.2 (0.0-1.5) % Neut # (Auto) 4.3 (1.4-5.7) K/uL Lymph # (Auto) 3.4 H (0.6-2.4) K/uL Tate # (Auto) 0.5 (0.0-0.8) K/uL Eos # (Auto) 0.2 (0.0-0.7) K/uL Baso # (Auto) 0.0 (0.0-0.1) K/uL Nucleated RBC % 0.0 /100WBC Nucleated RBCs # 0 K/uL Sodium 143 (136-148) mmol/L Potassium 3.8 (3.5-5.1) mmol/L Chloride 103 (98-107) mmol/L Carbon Dioxide 24.4 (21.0-32.0) mmol/L BUN 13 (7.0-18.0) mg/dL Creatinine 1.0 (0.8-1.3) mg/dL Est Cr Clr Drug Dosing 111.58 mL/min Estimated GFR (MDRD) > 60.0 ml/min Glucose 138 H (74-106) mg/dL Calcium 8.2 L (8.5-10.1) mg/dL Magnesium 1.9 (1.8-2.4) mg/dL Total Bilirubin 0.2 (0.2-1.0) mg/dL AST 35 (15-37) IU/L ALT 30 (14-63) IU/L Alkaline Phosphatase 72 (46-116) U/L Total Protein 7.6 (6.4-8.2) g/dL Albumin 3.5 (3.4-5.0) g/dL Globulin 4.1 H (2.6-4.0) g/dL Albumin/Globulin Ratio 0.9 (0.9-1.6) TSH 3rd Generation 1.56 (0.36-3.74) uIU/mL Urine Color YELLOW Urine Appearance SLT CLOUDY Urine pH 8.0 (5.0-8.0) Ur Specific Adkins 1.015 (1.001-1.035) Urine Protein TRACE H (NEGATIVE) mg/dL Urine Glucose (UA) NEGATIVE (NEGATIVE) mg/dL Urine Ketones NEGATIVE (NEGATIVE) mg/dL Urine Occult Blood NEGATIVE (NEGATIVE) Urine Nitrite NEGATIVE (NEGATIVE) Urine Bilirubin NEGATIVE (NEGATIVE) Urine Urobilinogen 0.2 (<2.0) EU/dL Ur Leukocyte Esterase NEGATIVE (NEGATIVE) Urine RBC NONE SEEN (0-2/HPF) Urine WBC 0-2 (0-5/HPF) Ur Epithelial Cells RARE (NONE-FEW) Amorphous Sediment MODERATE (NEGATIVE) Urine Bacteria RARE (NEGATIVE) Salicylates 4.5 (0-20) mg/dL Urine Opiates Screen (NEGATIVE) Ur Oxycodone Screen (NEGATIVE) Urine Methadone Screen (NEGATIVE) Acetaminophen <2.0 ug/mL Ur Barbiturates Screen (NEGATIVE) Ur Phencyclidine Scrn (NEGATIVE) Ur Amphetamine Screen (NEGATIVE) U Methamphetamines Scrn (NEGATIVE) U Benzodiazepines Scrn (NEGATIVE) U Cocaine Metab Screen (NEGATIVE) U Marijuana (THC) Screen (NEGATIVE) Ethyl Alcohol 284 mg/dL 07/27/19 Range/Units 16:08 WBC (4.0-11.0) K/uL RBC (4.50-5.90) M/uL Hgb (13.0-17.0) g/dL Hct (38.0-50.0) % MCV (80.0-98.0) fL MCH (27.0-32.0) pg MCHC (31.0-37.0) g/dL RDW Std Deviation (28.0-62.0) fl RDW Coeff of Shantel (11.0-15.0) % Plt Count (150-400) K/uL MPV (7.40-12.00) fL Neut % (Auto) (48.0-80.0) % Lymph % (Auto) (16.0-40.0) % Tate % (Auto) (0.0-15.0) % Eos % (Auto) (0.0-7.0) % Baso % (Auto) (0.0-1.5) % Neut # (Auto) (1.4-5.7) K/uL Lymph # (Auto) (0.6-2.4) K/uL Tate # (Auto) (0.0-0.8) K/uL Eos # (Auto) (0.0-0.7) K/uL Baso # (Auto) (0.0-0.1) K/uL Nucleated RBC % /100WBC Nucleated RBCs # K/uL Sodium (136-148) mmol/L Potassium (3.5-5.1) mmol/L Chloride (98-107) mmol/L Carbon Dioxide (21.0-32.0) mmol/L BUN (7.0-18.0) mg/dL Creatinine (0.8-1.3) mg/dL Est Cr Clr Drug Dosing mL/min Estimated GFR (MDRD) ml/min Glucose (74-106) mg/dL Calcium (8.5-10.1) mg/dL Magnesium (1.8-2.4) mg/dL Total Bilirubin (0.2-1.0) mg/dL AST (15-37) IU/L ALT (14-63) IU/L Alkaline Phosphatase (46-116) U/L Total Protein (6.4-8.2) g/dL Albumin (3.4-5.0) g/dL Globulin (2.6-4.0) g/dL Albumin/Globulin Ratio (0.9-1.6) TSH 3rd Generation (0.36-3.74) uIU/mL Urine Color Urine Appearance Urine pH (5.0-8.0) Ur Specific Adkins (1.001-1.035) Urine Protein (NEGATIVE) mg/dL Urine Glucose (UA) (NEGATIVE) mg/dL Urine Ketones (NEGATIVE) mg/dL Urine Occult Blood (NEGATIVE) Urine Nitrite (NEGATIVE) Urine Bilirubin (NEGATIVE) Urine Urobilinogen (<2.0) EU/dL Ur Leukocyte Esterase (NEGATIVE) Urine RBC (0-2/HPF) Urine WBC (0-5/HPF) Ur Epithelial Cells (NONE-FEW) Amorphous Sediment (NEGATIVE) Urine Bacteria (NEGATIVE) Salicylates (0-20) mg/dL Urine Opiates Screen NEGATIVE (NEGATIVE) Ur Oxycodone Screen NEGATIVE (NEGATIVE) Urine Methadone Screen NEGATIVE (NEGATIVE) Acetaminophen ug/mL Ur Barbiturates Screen NEGATIVE (NEGATIVE) Ur Phencyclidine Scrn NEGATIVE (NEGATIVE) Ur Amphetamine Screen NEGATIVE (NEGATIVE) U Methamphetamines Scrn NEGATIVE (NEGATIVE) U Benzodiazepines Scrn POSITIVE (NEGATIVE) U Cocaine Metab Screen NEGATIVE (NEGATIVE) U Marijuana (THC) Screen NEGATIVE (NEGATIVE) Ethyl Alcohol mg/dL Meds: Medications Discontinued Medications Generic Name Dose Route Start Last Admin Trade Name Franki PRN Reason Stop Dose Admin Chlordiazepoxide HCl 50 mg 07/27/19 16:52 07/27/19 17:07 Librium PO 07/27/19 16:53 50 mg ONETIME ONE Administration Nicotine 21 mg 07/27/19 17:19 07/27/19 17:30 Habitrol TRDERM 07/27/19 17:20 21 mg ONETIME ONE Administration Departure - Departure Time of Disposition: 17:42 Disposition: DC/Tfer to Psych Hosp/Unit 65 Condition: Good Clinical Impression: Depressive disorder, Alcohol abuse - Discharge Information Referrals: PCP,None [Primary Care Provider] - Forms: ED Department Discharge
[2019-07-27 16:38] LABS: ACETAMINOPHEN <2.0 ug/mL; BLOOD UREA NITROGEN,BUN 13 mg/dL (7.0-18.0); CARBON DIOXIDE,CO2 24.4 mmol/L (21.0-32.0); CHLORIDE,CL 103 mmol/L (98-107); GLUCOSE RANDOM 138 mg/dL (74-106); POTASSIUM,K 3.8 mmol/L (3.5-5.1); SODIUM,NA 143 mmol/L (136-148)
[2019-07-27] MEDS ORDERED: chlordiazePOXIDE 25 MG Cap PO ONE (16:52)
[2019-07-27] MEDS ORDERED: Nicotine 21 MG/24 Hr Patch TRDERM ONE (17:19)
[2019-07-27 18:39] VITALS: BP 142/103; PULSE 108
== END 2019-07-27 18:40 ==
LOC: MW.ED 15:31
DX: F32.9 Major depressive disorder, single episode, unspecified (principal); F10.10 Alcohol abuse, uncomplicated; F17.210 Nicotine dependence, cigarettes, uncomplicated; Z88.8 Allergy status to other drugs, medicaments and biological substances; Y90.8 Blood alcohol level of 240 mg/100 ml or more
CPT/HCPCS: 36415; 80053; 80305; 80320; 80329; 81001; 83735; 84443; 85025; 93005; 99285; A9270; G0480

== ENCOUNTER 2019-09-02 20:56 | Emergency (ER) | payer BC ==
[2019-09-02] MEDS ORDERED: Sodium Chloride 0.9% 1,000 ML IV ONE (21:53)
[2019-09-02] MEDS ORDERED: LORazepam 2 MG/ML SDV IVPUSH ONE (21:53)
[2019-09-02] MEDS ORDERED: Ondansetron 4 MG/2 ML SDV IVPUSH ONE (21:53)
--- NOTE | 2019-09-02 22:01 | EDM.PDOCBH ---
ED HPI GENERAL MEDICAL PROBLEM - General Chief Complaint: Drug or Alcohol Abuse Stated Complaint: ALCOHOL WITHDRAWL Time Seen by Provider: 09/02/19 21:24 Source of Information: Reports: Patient History Limitations: Reports: No Limitations - History of Present Illness INITIAL COMMENTS - FREE TEXT/NARRATIVE: Patient presents reporting he would like some IV fluids. He states that he has had an drinking problem for many years--at his highest he drank a liter of hard alcohol a day. Most recently he has drank 6-12 airplane bottles a day. In the last few days he is down to 5 a day. This afternoon he had some nausea and vomited twice and was shaky. By the time he got here his shakiness has resolved. He is trying to cut back on his own. He would like to go to a support group but he states it is difficult to find a "non-theistic take support group" here in [place]. He has a secular humanist. He has been here in [place] on a construction project which he just finished up. 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 body Pain Score (Numeric/FACES): 4 - Related Data Allergies Allergy/AdvReac Type Severity Reaction Status Date / Time trazodone Allergy Itching Verified 09/02/19 21:10 Home Meds: Home Meds Gabapentin [Gralise] 600 mg PO DAILY 09/02/19 [History] [place] Carbonate 200 mg PO DAILY 09/02/19 [History] Past Medical History HEENT History: Reports: None Cardiovascular History: Reports: None Respiratory History: Reports: COPD, Other (See Below) Other Respiratory History: daily smoker Gastrointestinal History: Reports: None Genitourinary History: Reports: Other (See Below) Other Genitourinary History: 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 sober for 4 yrs- started drinking since March. feels depressed but unable to point what triggers it Endocrine/Metabolic History: Reports: None Insulin Pump Model and Cafe Operator: None Hematologic History: Reports: None Immunologic History: Reports: None Oncologic (Cancer) History: Reports: None Dermatologic History: Reports: None - Infectious Disease History Infectious Disease History: Reports: C-Difficile - Past Surgical History Head Surgeries/Procedures: Reports: None Respiratory Surgical History: Reports: None Male Surgical History: Reports: Nephrectomy, Other (See Below) Other Male Surgeries/Procedures: 1 kidney donated to sister Social & Family History - Family History Family Medical History: Noncontributory - Tobacco Use Smoking Status *Q: Current Every Day Smoker Years of Tobacco use: 20 Packs/Tins Daily: 1 - Caffeine Use Caffeine Use: Reports: Coffee, Energy Drinks, Soda, Tea - Recreational Drug Use Recreational Drug Use: Yes Drug Use in Last 12 Months: Yes Recreational Drug Type: Reports: Marijuana/Hashish Recreational Drug Use Frequency: Rarely - Living Situation & Occupation Occupation: Employed ([employer]) ED ROS GENERAL - Review of Systems Review Of Systems: Comprehensive ROS is negative, except as noted in HPI. ED EXAM, BEHAVIORAL HEALTH - Physical Exam Exam: See Below Exam Limited By: No Limitations General Appearance: Alert, No Apparent Distress Ears: Normal External Exam Nose: Normal Inspection Throat/Mouth: Normal Inspection Head: Atraumatic, Normocephalic Neck: Normal Inspection Respiratory/Chest: No Respiratory Distress, Lungs Clear, Normal Breath Sounds Cardiovascular: Regular Rate, Rhythm, No Murmur GI/Abdominal: Normal Bowel Sounds, Soft, Non-Tender, No Distention Extremities: Normal Inspection Neurological: Alert, Normal Mood/Affect, Normal Cognition, No Motor/Sensory Deficits Psychiatric: Alert, Normal Affect, Normal Cognition Skin Exam: Warm, Dry, Intact, Normal color, No rash COURSE, BEHAVIORAL HEALTH COMP - Course Vital Signs: Last Vital Signs Temp 36.6 C 09/02/19 21:00 Pulse 107 H 09/02/19 21:00 Resp 18 09/02/19 21:00 BP 152/100 H 09/02/19 21:00 Pulse Ox 96 09/02/19 21:00 Orders, Labs, Meds: Active Orders 24 hr Category Date Time Status Sodium Chloride 0.9% [Normal Saline] 1,000 ml Med 09/02/19 21:53 Ordered IV STAT Medication Orders Sodium Chloride (Normal Saline) 1,000 mls @ 999 mls/hr IV STAT ONE Stop: 09/02/19 22:53 Medications Generic Name Dose Route Start Last Admin Trade Name Freq PRN Reason Stop Dose Admin Sodium Chloride 1,000 mls @ 999 mls/hr 09/02/19 21:53 Normal Saline IV 09/02/19 22:53 STAT ONE Discontinued Medications Generic Name Dose Route Start Last Admin Trade Name Freq PRN Reason Stop Dose Admin Lorazepam 0.5 mg 09/02/19 21:53 Ativan IVPUSH 09/02/19 21:54 ONETIME ONE Ondansetron HCl 4 mg 09/02/19 21:53 Zofran IVPUSH 09/02/19 21:54 ONETIME ONE Departure - Departure Time of Disposition: 22:12 Disposition: Home, Self-Care 01 Condition: Good Clinical Impression: Alcohol withdrawal Qualifiers: Complication of substance-induced condition: uncomplicated Qualified Code(s): F10.230 - Alcohol dependence with withdrawal, uncomplicated - Discharge Information Referrals: PCP,None [Primary Care Provider] - Dee Rajput NP [Ordering Only Provider] - Additional Instructions: The following information is given to patients seen in the emergency department who are being discharged to home. This information is to outline your options for follow-up care. We provide all patients seen in our emergency department with a follow-up referral. The need for follow-up, as well as the timing and circumstances, are variable depending upon the specifics of your emergency department visit. If you don't have a primary care physician on staff, we will provide you with a referral. We always advise you to contact your personal physician following an emergency department visit to inform them of the circumstance of the visit and for follow-up with them and/or the need for any referrals to a consulting specialist. The emergency department will also refer you to a specialist when appropriate. This referral assures that you have the opportunity for follow-up care with a specialist. All of these measure are taken in an effort to provide you with optimal care, which includes your follow-up. Under all circumstances we always encourage you to contact your private physician who remains a resource for coordinating your care. When calling for follow-up care, please make the office aware that this follow-up is from your recent emergency room visit. If for any reason you are refused follow-up, please contact the [facility] Emergency Department at and asked to speak to the emergency department charge nurse. 1. Continue efforts to stop drinking alcohol slowly. 2. All up with your primary care provider in [place] on Tuesday - My Orders Last 24 Hours: My Active Orders 09/02/19 21:53 Sodium Chloride 0.9% [Normal Saline] 1,000 ml IV STAT - Assessment/Plan Last 24 Hours: My Active Orders 09/02/19 21:53 Sodium Chloride 0.9% [Normal Saline] 1,000 ml IV STAT
[2019-09-02 23:11] VITALS: BP 133/92; PULSE 80
== END 2019-09-02 22:50 | disposition home or self-care (01) ==
LOC: MW.ED 20:56
DX: F10.230 Alcohol dependence with withdrawal, uncomplicated (principal); F41.9 Anxiety disorder, unspecified; F32.9 Major depressive disorder, single episode, unspecified; F17.210 Nicotine dependence, cigarettes, uncomplicated; Z88.8 Allergy status to other drugs, medicaments and biological substances; Z79.899 Other long term (current) drug therapy
CPT/HCPCS: 96361; 96374; 96375; 99283; J2060; J2405; J7040

== ENCOUNTER 2019-09-04 10:20 | Emergency (ER) | payer BC ==
[2019-09-04] MEDS ORDERED: Ondansetron 4 MG/2 ML SDV IVPUSH ONE (10:47)
[2019-09-04] MEDS ORDERED: Sodium Chloride 0.9% 1,000 ML IV ONE (10:47)
--- NOTE | 2019-09-04 10:58 | EDM.PDOCBH ---
ED HPI GENERAL MEDICAL PROBLEM - General Chief Complaint: Drug or Alcohol Abuse Stated Complaint: ALCOHOL WITHDRAWAL Time Seen by Provider: 09/04/19 10:42 Source of Information: Reports: Patient History Limitations: Reports: No Limitations - History of Present Illness INITIAL COMMENTS - FREE TEXT/NARRATIVE: Presents reporting he would like some IV fluids and some Librium. I had seen the patient on 09/02/2019 at which time he requests the same. On that date he recounted: That he has had an drinking problem for many years--at his highest he drank a liter of hard alcohol a day. Most recently he has drank 6-12 airplane bottles a day. In the last few days he is down to 5 a day. This afternoon he had some nausea and vomited twice and was shaky. By the time he got here his shakiness has resolved. He is trying to cut back on his own. He would like to go to a support group but he states it is difficult to find a "non -theistic take support group" here in [place]. He has a secular humanist. He has been here in [place] on a construction project which he just finished up. 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 Now today the patient states that he had for hard liquor drinks yesterday. This morning he had one. He feels a little shaky and nauseated and just would like some help getting through the next couple of days. He has detoxed a number of times before and knows what he is up against. Entire Body Pain Score (Numeric/FACES): 6 - Related Data Allergies Allergy/AdvReac Type Severity Reaction Status Date / Time trazodone Allergy Itching Verified 09/04/19 10:32 Home Meds: Home Meds [place] Carbonate 200 mg PO DAILY 09/02/19 [History] Mirtazapine 7.5 mg PO DAILY 09/04/19 [History] chlordiazePOXIDE [Librium] 25 mg PO TID PRN #30 cap 09/04/19 [Rx] Past Medical History HEENT History: Reports: None Cardiovascular History: Reports: None Respiratory History: Reports: COPD, Other (See Below) Other Respiratory History: daily smoker Gastrointestinal History: Reports: None Genitourinary History: Reports: Other (See Below) Other Genitourinary History: 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 sober for 4 yrs- started drinking since March. feels depressed but unable to point what triggers it Endocrine/Metabolic History: Reports: None Insulin Pump Model and Wharf Builder: None Hematologic History: Reports: None Immunologic History: Reports: None Oncologic (Cancer) History: Reports: None Dermatologic History: Reports: None - Infectious Disease History Infectious Disease History: Reports: None - Past Surgical History Head Surgeries/Procedures: Reports: None Respiratory Surgical History: Reports: None Male Surgical History: Reports: Nephrectomy, Other (See Below) Other Male Surgeries/Procedures: 1 kidney donated to sister Social & Family History - Family History Family Medical History: Noncontributory - Tobacco Use Smoking Status *Q: Current Every Day Smoker Years of Tobacco use: 20 Packs/Tins Daily: 1 - Caffeine Use Caffeine Use: Reports: Coffee - Alcohol Use Days Per Week of Alcohol Use: 7 Number of Drinks Per Day: 5 Total Drinks Per Week: 35 Date of Last Drink: 09/04/19 Time of Last Drink: 08:00 - Recreational Drug Use Recreational Drug Use: Yes Recreational Drug Type: Reports: Marijuana/Hashish Recreational Drug Use Frequency: Weekly - Living Situation & Occupation Occupation: Employed ([employer]) ED ROS GENERAL - Review of Systems Review Of Systems: Comprehensive ROS is negative, except as noted in HPI. ED EXAM, BEHAVIORAL HEALTH - Physical Exam Exam: See Below Exam Limited By: No Limitations General Appearance: Alert, No Apparent Distress Ears: Normal External Exam Nose: Normal Inspection Throat/Mouth: Normal Inspection Head: Atraumatic, Normocephalic Neck: Normal Inspection Respiratory/Chest: No Respiratory Distress, Lungs Clear, Normal Breath Sounds Cardiovascular: Regular Rate, Rhythm, No Murmur Neurological: Alert, Normal Mood/Affect, Normal Cognition Psychiatric: Alert, Normal Affect, Normal Cognition Skin Exam: Warm, Dry, Intact, Normal color, No rash COURSE, BEHAVIORAL HEALTH COMP - Course Vital Signs: Last Vital Signs Temp 36.8 C 09/04/19 10:34 Pulse 117 H 09/04/19 10:34 Resp 18 09/04/19 10:34 BP 123/102 H 09/04/19 10:34 Pulse Ox 96 09/04/19 10:34 Orders, Labs, Meds: Active Orders 24 hr Category Date Time Status Sodium Chloride 0.9% [Normal Saline] 1,000 ml Med 09/04/19 10:47 Active IV STAT Medication Orders Sodium Chloride (Normal Saline) 1,000 mls @ 999 mls/hr IV STAT ONE Stop: 09/04/19 11:47 Medications Generic Name Dose Route Start Last Admin Trade Name Freq PRN Reason Stop Dose Admin Sodium Chloride 1,000 mls @ 999 mls/hr 09/04/19 10:47 Normal Saline IV 09/04/19 11:47 STAT ONE Discontinued Medications Generic Name Dose Route Start Last Admin Trade Name Freq PRN Reason Stop Dose Admin Ondansetron HCl 4 mg 09/04/19 10:47 Zofran IVPUSH 09/04/19 10:48 ONETIME ONE Departure - Departure Time of Disposition: 11:08 Disposition: Home, Self-Care 01 Condition: Good Clinical Impression: Alcohol withdrawal Qualifiers: Complication of substance-induced condition: uncomplicated Qualified Code(s): F10.230 - Alcohol dependence with withdrawal, uncomplicated - Discharge Information Referrals: PCP,Not In Area [Primary Care Provider] - Additional Instructions: The following information is given to patients seen in the emergency department who are being discharged to home. This information is to outline your options for follow-up care. We provide all patients seen in our emergency department with a follow-up referral. The need for follow-up, as well as the timing and circumstances, are variable depending upon the specifics of your emergency department visit. If you don't have a primary care physician on staff, we will provide you with a referral. We always advise you to contact your personal physician following an emergency department visit to inform them of the circumstance of the visit and for follow-up with them and/or the need for any referrals to a consulting specialist. The emergency department will also refer you to a specialist when appropriate. This referral assures that you have the opportunity for follow-up care with a specialist. All of these measure are taken in an effort to provide you with optimal care, which includes your follow-up. Under all circumstances we always encourage you to contact your private physician who remains a resource for coordinating your care. When calling for follow-up care, please make the office aware that this follow-up is from your recent emergency room visit. If for any reason you are refused follow-up, please contact the [facility] Emergency Department at and asked to speak to the emergency department charge nurse. 1. Librium 1-2 caps every 8 hours as needed for withdrawal symptoms. No driving or operating machinery 2. Drink plenty of fluids. 3. Follow-up with primary provider in [place] - My Orders Last 24 Hours: My Active Orders 09/04/19 10:47 Sodium Chloride 0.9% [Normal Saline] 1,000 ml IV STAT - Assessment/Plan Last 24 Hours: My Active Orders 09/04/19 10:47 Sodium Chloride 0.9% [Normal Saline] 1,000 ml IV STAT
[2019-09-04 12:06] VITALS: BP 126/84; PULSE 99
== END 2019-09-04 12:06 | disposition home or self-care (01) ==
LOC: MW.ED 10:20
DX: F10.230 Alcohol dependence with withdrawal, uncomplicated (principal); F17.210 Nicotine dependence, cigarettes, uncomplicated; J44.9 Chronic obstructive pulmonary disease, unspecified; F41.9 Anxiety disorder, unspecified; F32.9 Major depressive disorder, single episode, unspecified; Z88.8 Allergy status to other drugs, medicaments and biological substances
CPT/HCPCS: 96361; 96374; 99284; J2405; J7040; 99283

== ENCOUNTER 2019-09-05 20:16 | Emergency (ER) | payer BC ==
[2019-09-05] MEDS ORDERED: Ondansetron 4 MG/2 ML SDV IVPUSH ONE (20:47)
[2019-09-05] MEDS ORDERED: Sodium Chloride 0.9% 1,000 ML IV ONE (20:47)
--- NOTE | 2019-09-05 20:51 | EDM.PDOC ---
ED HPI GENERAL MEDICAL PROBLEM - General Chief Complaint: Drug or Alcohol Abuse Stated Complaint: VOMITING Time Seen by Provider: 09/05/19 20:37 Source of Information: Reports: Patient History Limitations: Reports: No Limitations - History of Present Illness INITIAL COMMENTS - FREE TEXT/NARRATIVE: HISTORY AND PHYSICAL: History of present illness: Patient is a 38-year-old male who presents to the ED today with concern of 2 episodes of vomiting and feeling "shaky ". Patient states the shakiness has resolved before coming to the ED but has had 2 episodes of vomiting today. Patient states he is a chronic alcohol user and is working on a plan to cut back from drinking. Patient states several weeks ago he was drinking 12 drinks of hard alcohol a day. Patient states he cut down to 6 a day. Patient states he is currently at 4 a day and tried to cut down to 3 a day for today. Patient states he has had 3 alcoholic beverages with his last drink being an hour to 2 hours ago. Patient states he was feeling shaky earlier today but this has resolved. Patient denies any other symptoms or concerns. Patient denies fever, chills, chest pain, shortness of breath, or cough. Denies headache, neck stiff ness, change in vision, syncope, or near syncope. Denies abdominal pain, diarrhea, constipation, or dysuria. Has not noted any blood in urine or stool. Patient has been eating and drinking appropriately. Review of systems: As per history of present illness and below otherwise all systems reviewed and negative. Past medical history: As per history of present illness and as reviewed below otherwise noncontributory. Surgical history: As per history of present illness and as reviewed below otherwise noncontributory. Social history: See social history for further information Family history: As per history of present illness and as reviewed below otherwise noncontributory. Physical exam: General: Patient is alert, oriented, and in no acute distress. Patient sitting comfortably on exam table. HEENT: Atraumatic, normocephalic, pupils equal and reactive bilaterally, negative for conjunctival pallor or scleral icterus, mucous membranes moist, TMs normal bilaterally, throat clear, neck supple, nontender, trachea midline. No drooling or trismus noted. No meningeal signs. No hot potato voice noted. Lungs: Clear to auscultation, breath sounds equal bilaterally, chest nontender. Heart: S1S2, regular rate and rhythm without overt murmur Abdomen: Soft, nondistended, nontender. Negative for masses or hepatosplenomegaly. Negative for costovertebral tenderness. Pelvis: Stable nontender. Genitourinary: Deferred. Rectal: Deferred. Skin: Intact, warm, dry. No lesions or rashes noted. Extremities: Atraumatic, negative for cords or calf pain. Neurovascular unremarkable. Neuro: Awake, alert, oriented. Cranial nerves II through XII unremarkable. Cerebellum unremarkable. Motor and sensory unremarkable throughout. Exam nonfocal. Notes: Patient expresses resolution of symptoms seen in the ED. He does not have any episodes of vomiting in the ED today and is requesting to eat food at this time. Discussed the importance for follow-up with a primary care provider. Voices understanding and is agreeable to plan of care. Denies any further questions or concerns at this time. Diagnostics: CBC, CMP, UA, lipase, Therapeutics: NS, Zofran Prescription: None Impression: Alcohol abuse H/O vomiting Plan: 1. Encourage small but frequent sips of fluid to prevent dehydration. 2. You can alternate ibuprofen and Tylenol as directed for pain and discomfort. 3. Follow up with her primary care provider as discussed. Return to the ED as needed and as discussed. Definitive disposition and diagnosis as appropriate pending reevaluation and review of above. abd Pain Score (Numeric/FACES): 9 - Related Data Allergies Allergy/AdvReac Type Severity Reaction Status Date / Time trazodone Allergy Itching Verified 09/05/19 20:33 Home Meds: Home Meds [place] Carbonate 100 mg PO BID 09/02/19 [History] Mirtazapine 7.5 mg PO DAILY 09/04/19 [History] Gabapentin [Neurontin] 600 mg PO DAILY 09/05/19 [History] Past Medical History HEENT History: Reports: None Cardiovascular History: Reports: None Respiratory History: Reports: COPD, Other (See Below) Other Respiratory History: daily smoker Gastrointestinal History: Reports: None Genitourinary History: Reports: Other (See Below) Other Genitourinary History: 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 sober for 4 yrs- started drinking since March. feels depressed but unable to point what triggers it Endocrine/Metabolic History: Reports: None Insulin Pump Model and Short Order Fry Cook: None Hematologic History: Reports: None Immunologic History: Reports: None Oncologic (Cancer) History: Reports: None Dermatologic History: Reports: None - Infectious Disease History Infectious Disease History: Reports: None - Past Surgical History Head Surgeries/Procedures: Reports: None Respiratory Surgical History: Reports: None Male Surgical History: Reports: Nephrectomy, Other (See Below) Other Male Surgeries/Procedures: 1 kidney donated to sister Social & Family History - Family History Family Medical History: Noncontributory - Tobacco Use Smoking Status *Q: Current Every Day Smoker Years of Tobacco use: 20 Packs/Tins Daily: 1 - Caffeine Use Caffeine Use: Reports: Coffee - Recreational Drug Use Recreational Drug Use: No - Living Situation & Occupation Occupation: Employed ([employer]) ED ROS GENERAL - Review of Systems Review Of Systems: Comprehensive ROS is negative, except as noted in HPI. ED EXAM, GENERAL - Physical Exam Exam: See Below (see dictation) Course - Vital Signs Last Recorded V/S: Last Vital Signs Temp 97.0 F 09/05/19 20:31 Pulse 124 H 09/05/19 20:31 Resp 20 09/05/19 20:31 BP 125/92 H 09/05/19 20:31 Pulse Ox 96 09/05/19 20:31 - Orders/Labs/Meds Orders: Active Orders 24 hr Category Date Time Status Sodium Chloride 0.9% [Normal Saline] 1,000 ml Med 09/05/19 20:47 Active IV BOLUS Medication Orders Sodium Chloride (Normal Saline) 1,000 mls @ 999 mls/hr IV BOLUS ONE Stop: 09/05/19 21:47 Last Admin: 09/05/19 20:54 Dose: 999 mls/hr Labs: Laboratory Tests 09/05/19 09/05/19 09/05/19 Range/Units 20:45 20:45 20:55 WBC 14.15 H (4.0-11.0) K/uL RBC 4.94 (4.50-5.90) M/uL Hgb 16.2 (13.0-17.0) g/dL Hct 45.9 (38.0-50.0) % MCV 92.9 (80.0-98.0) fL MCH 32.8 H (27.0-32.0) pg MCHC 35.3 (31.0-37.0) g/dL RDW Std Deviation 48.1 (28.0-62.0) fl RDW Coeff of [place] 14 (11.0-15.0) % Plt Count 203 (150-400) K/uL MPV 10.60 (7.40-12.00) fL Neut % (Auto) 68.5 (48.0-80.0) % Lymph % (Auto) 22.1 (16.0-40.0) % [place] % (Auto) 7.2 (0.0-15.0) % Eos % (Auto) 1.8 (0.0-7.0) % Baso % (Auto) 0.4 (0.0-1.5) % Neut # (Auto) 9.7 H (1.4-5.7) K/uL Lymph # (Auto) 3.1 H (0.6-2.4) K/uL [place] # (Auto) 1.0 H (0.0-0.8) K/uL Eos # (Auto) 0.3 (0.0-0.7) K/uL Baso # (Auto) 0.1 (0.0-0.1) K/uL Nucleated RBC % 0.0 /100WBC Nucleated RBCs # 0 K/uL Sodium 140 (136-148) mmol/L Potassium 3.7 (3.5-5.1) mmol/L Chloride 103 (98-107) mmol/L Carbon Dioxide 22.9 (21.0-32.0) mmol/L BUN 24 H (7.0-18.0) mg/dL Creatinine 1.2 (0.8-1.3) mg/dL Est Cr Clr Drug Dosing 94.63 mL/min Estimated GFR (MDRD) > 60.0 ml/min Glucose 129 H (74-106) mg/dL Calcium 8.0 L (8.5-10.1) mg/dL Total Bilirubin 0.4 (0.2-1.0) mg/dL AST 68 H (15-37) IU/L ALT 27 (14-63) IU/L Alkaline Phosphatase 65 (46-116) U/L Total Protein 6.8 (6.4-8.2) g/dL Albumin 3.4 (3.4-5.0) g/dL Globulin 3.4 (2.6-4.0) g/dL Albumin/Globulin Ratio 1.0 (0.9-1.6) Lipase 145 (73-393) U/L Urine Color YELLOW Urine Appearance CLEAR Urine pH 6.0 (5.0-8.0) Ur Specific [place] 1.010 (1.001-1.035) Urine Protein NEGATIVE (NEGATIVE) mg/dL Urine Glucose (UA) NEGATIVE (NEGATIVE) mg/dL Urine Ketones NEGATIVE (NEGATIVE) mg/dL Urine Occult Blood NEGATIVE (NEGATIVE) Urine Nitrite NEGATIVE (NEGATIVE) Urine Bilirubin NEGATIVE (NEGATIVE) Urine Urobilinogen 0.2 (<2.0) EU/dL Ur Leukocyte Esterase NEGATIVE (NEGATIVE) Meds: Medications Generic Name Dose Route Start Last Admin Trade Name Freq PRN Reason Stop Dose Admin Sodium Chloride 1,000 mls @ 999 mls/hr 09/05/19 20:47 09/05/19 20:54 Normal Saline IV 09/05/19 21:47 999 mls/hr BOLUS ONE Administration Discontinued Medications Generic Name Dose Route Start Last Admin Trade Name Freq PRN Reason Stop Dose Admin Ondansetron HCl 4 mg 09/05/19 20:47 09/05/19 20:54 Zofran IVPUSH 09/05/19 20:48 4 mg ONETIME ONE Administration Departure - Departure Time of Disposition: 21:44 Disposition: Home, Self-Care 01 Clinical Impression: Alcohol abuse, History of vomiting - Discharge Information Referrals: PCP,Not In Area [Primary Care Provider] - Forms: ED Department Discharge Additional Instructions: The following information is given to patients seen in the emergency department who are being discharged to home. This information is to outline your options for follow-up care. We provide all patients seen in our emergency department with a follow-up referral. The need for follow-up, as well as the timing and circumstances, are variable depending upon the specifics of your emergency department visit. If you don't have a primary care physician on staff, we will provide you with a referral. We always advise you to contact your personal physician following an emergency department visit to inform them of the circumstance of the visit and for follow-up with them and/or the need for any referrals to a consulting specialist. The emergency department will also refer you to a specialist when appropriate. This referral assures that you have the opportunity for follow-up care with a specialist. All of these measure are taken in an effort to provide you with optimal care, which includes your follow-up. Under all circumstances we always encourage you to contact your private physician who remains a resource for coordinating your care. When calling for follow-up care, please make the office aware that this follow-up is from your recent emergency room visit. If for any reason you are refused follow-up, please contact the [facility] Emergency Department at and asked to speak to the emergency department charge nurse. [facility] [address] [place] [id number] [id number] 1. Encourage small but frequent sips of fluid to prevent dehydration. 2. You can alternate ibuprofen and Tylenol as directed for pain and discomfort. 3. Follow up with her primary care provider as discussed. Return to the ED as needed and as discussed. - My Orders Last 24 Hours: My Active Orders 09/05/19 20:47 Sodium Chloride 0.9% [Normal Saline] 1,000 ml IV BOLUS - Assessment/Plan Last 24 Hours: My Active Orders 09/05/19 20:47 Sodium Chloride 0.9% [Normal Saline] 1,000 ml IV BOLUS
[2019-09-05 21:19] LABS: BLOOD UREA NITROGEN,BUN 24 mg/dL (7.0-18.0); CARBON DIOXIDE,CO2 22.9 mmol/L (21.0-32.0); CHLORIDE,CL 103 mmol/L (98-107); GLUCOSE RANDOM 129 mg/dL (74-106); LIPASE 145 U/L (73-393); POTASSIUM,K 3.7 mmol/L (3.5-5.1); SODIUM,NA 140 mmol/L (136-148)
--- NOTE | 2019-09-05 21:36 | CR ---
Indication: Alcohol withdrawal Technique: Chest 1 view Comparison: None Findings/Impression: Cardiovascular and mediastinum: Heart size and vasculature are normal in caliber and appearance. Mediastinum is within normal limits. Lungs and pleural space: Lungs are clear. No sign of infiltrate or mass. No sign of pleural effusion. No pneumothorax. Bones and soft tissues: No significant findings. Dictated by Ward Lai MD @ 09/05/2019 9:34:11 PM Dictated by: Ward Lai MD @ 09/05/2019 21:34:16 (Electronically Signed)
[2019-09-05 21:52] VITALS: BP 125/80; PULSE 92
== END 2019-09-05 21:50 | disposition home or self-care (01) ==
LOC: MW.ED 20:16
DX: F10.10 Alcohol abuse, uncomplicated (principal); Y90.9 Presence of alcohol in blood, level not specified; J44.9 Chronic obstructive pulmonary disease, unspecified; F17.210 Nicotine dependence, cigarettes, uncomplicated; F32.9 Major depressive disorder, single episode, unspecified; Z79.899 Other long term (current) drug therapy; Z87.19 Personal history of other diseases of the digestive system; Z88.8 Allergy status to other drugs, medicaments and biological substances
CPT/HCPCS: 36415; 71045; 80053; 81003; 83690; 85025; 96361; 96374; 99284; J2405; J7040